=== PATIENT | male | born 1995 | race Caucasian/White ===

== ENCOUNTER 2018-01-19 23:44 | Emergency (ER) | payer OTHER ==
[~2018-01-19] VITALS: Ht 190.5 cm; Wt 86.2 kg
[~2018-01-19 23:44] MED LIST: ACETAMINOPHEN-1 EAC1 PO; AZITHROMYCIN 2250 MG PO; CELEXA20 MG PO; CIPROFLOXIN HC2.5 M1 OPHTHALMIC; DARVOCET-N 1001 EACH PO; FLEXERIL PO; KEFLEX500 MG PO; MEDROLDOSEPACK PO; NOHOMEMEDICATIONS; NORCO 5-325 TA1 EAC1 PO; NORCO 5-325 TA1 EACH PO; TRAZODONE HCL50 MG PO
[2018-01-19] MEDS ORDERED: SYNTHROID100 MC1 PO (23:58)
[2018-01-19] MEDS ORDERED: PROZAC10 MG PO (23:58)
[2018-01-20] MEDS ORDERED: CLEOCIN HCL150 MG PO (00:13)
[2018-01-20] MEDS ORDERED: CIPRO500 MG PO (00:13)
[2018-01-20 00:19] VITALS: BP 104/71
== END 2018-01-20 00:20 | disposition home or self-care (01) ==
LOC: M.ERS 23:44
DX: S61.451A Open bite of right hand, initial encounter (principal); Z90.49 Acquired absence of other specified parts of digestive tract; Z88.0 Allergy status to penicillin; W55.01XA Bitten by cat, initial encounter; Y93.89 Activity, other specified; Y92.89 Other specified places as the place of occurrence of the external cause; Y99.8 Other external cause status

== ENCOUNTER 2019-01-01 18:35 | Emergency (ER) | payer OTHER ==
[~2019-01-01] VITALS: Ht 190.5 cm; Wt 86.2 kg
[~2019-01-01 18:35] MED LIST changes: +CIPRO500 MG PO; +CLEOCIN HCL150 MG PO; +PROZAC20 MG PO; +SYNTHROID112 MC1 PO
[2019-01-01 19:28] LABS: ABSOLUTE EOSINOPHILS 0.1 thou/uL (0.0-0.7); ABSOLUTE LYMPHOCYTES 1.6 thou/uL (0.8-5.3); ABSOLUTE MONOCYTES 1.3 thou/uL (0.0-1.2); BASOPHILS 0.3 %; EOSINOPHILS 1.1 %; HEMATOCRIT 43.1 % (42.0-52.0); HEMOGLOBIN 14.6 gm/dL (14.0-18.0); LYMPHOCYTES 13.2 %; MCHC 33.9 g/dL (28.0-37.0); MCV 85.3 fL (80.0-100.0); MONOCYTES 11.1 %; NUCLEATED RBCS 0 /100WBC; PLATELET COUNT* 281 thou/uL (150-400); POLYS 74.3 %; RBC 5.05 mil/uL (4.50-6.00); RDW-CV 12.6 % (10.5-14.5); WBC 12.2 thou/uL (4.0-11.0)
[2019-01-01 19:29] LABS: URINE BILIRUBIN NEGATIVE (Negative); URINE BLOOD TRACE (Negative); URINE CLARITY CLEAR; URINE COLOR YELLOW; URINE GLUCOSE-RANDOM NEGATIVE (Negative); URINE KETONES NEGATIVE (Negative); URINE LEUKOCYTES-REFLEX NEGATIVE (Negative); URINE NITRITE-REFLEX NEGATIVE (Negative); URINE PROTEIN NEGATIVE (Negative); URINE UROBILINOGEN 0.2 E.U./dl (0.2-1.0)
[2019-01-01 19:33] LABS: CREATININE 1.1 mg/dL (0.6-1.3); POTASSIUM 3.6 mmol/L (3.5-5.1)
[2019-01-01 19:38] LABS: ALBUMIN 4.1 g/dL (3.4-5.0); MAGNESIUM 2.1 mg/dL (1.8-2.4); TOTAL BILIRUBIN 0.3 mg/dL (<0.1-1.0); TOTAL PROTEIN 7.4 g/dL (6.4-8.2)
[2019-01-01] MEDS ORDERED: DOXYCYCLINE 10100 MG PO (20:38)
[2019-01-01 22:45] VITALS: BP 133/66
== END 2019-01-01 20:56 | disposition home or self-care (01) ==
LOC: M.ERS 18:35
PROVIDERS: Nurse Practitioner Psychiatric/Mental Health
DX: S40.861A Insect bite (nonvenomous) of right upper arm, initial encounter (principal); S40.862A Insect bite (nonvenomous) of left upper arm, initial encounter; R19.7 Diarrhea, unspecified; R50.9 Fever, unspecified; R21 Rash and other nonspecific skin eruption; L53.9 Erythematous condition, unspecified; F17.200 Nicotine dependence, unspecified, uncomplicated; F41.9 Anxiety disorder, unspecified; F32.9 Major depressive disorder, single episode, unspecified; E03.9 Hypothyroidism, unspecified; Z90.49 Acquired absence of other specified parts of digestive tract; Z88.0 Allergy status to penicillin; W57.XXXA Bitten or stung by nonvenomous insect and other nonvenomous arthropods, initial encounter; Y92.89 Other specified places as the place of occurrence of the external cause; Y93.89 Activity, other specified; Y99.8 Other external cause status

== ENCOUNTER 2019-12-13 20:07 | Emergency (ER) | payer OTHER ==
[~2019-12-13] VITALS: Ht 190.5 cm; Wt 86.2 kg
[~2019-12-13 20:07] MED LIST changes: +DOXYCYCLINE 10100 MG PO
[2019-12-13] MEDS ORDERED: HYDROCODON-ACE1 EAC8 PO (20:33)
[2019-12-13] MEDS ORDERED: CLEOCIN HCL300 MG PO (20:33)
[2019-12-13 20:45] VITALS: BP 142/70
== END 2019-12-13 20:45 | disposition home or self-care (01) ==
LOC: M.ERS 20:07
DX: K08.89 Other specified disorders of teeth and supporting structures (principal); E03.9 Hypothyroidism, unspecified; F41.9 Anxiety disorder, unspecified; F32.9 Major depressive disorder, single episode, unspecified; Z90.49 Acquired absence of other specified parts of digestive tract; Z88.0 Allergy status to penicillin

== ENCOUNTER 2020-12-25 22:04 | Emergency (ER) | payer OTHER ==
[~2020-12-25] VITALS: Ht 190.5 cm; Wt 99.8 kg
[~2020-12-25 22:04] MED LIST changes: +CLEOCIN HCL300 MG PO; +HYDROCODON-ACE1 EAC8 PO
[2020-12-25] MEDS ORDERED: ABILIFY 2 MG2 M1 PO (23:11)
[2020-12-26] MEDS ORDERED: CLEOCIN HCL300 MG PO (00:21)
[2020-12-26] MEDS ORDERED: HYDROCODON-ACE1 EAC8 PO (00:21)
[2020-12-26 00:49] VITALS: BP 120/72
== END 2020-12-26 00:49 | disposition home or self-care (01) ==
LOC: M.ERS 22:04
DX: K08.89 Other specified disorders of teeth and supporting structures (principal); E03.9 Hypothyroidism, unspecified; Z88.0 Allergy status to penicillin; Z90.49 Acquired absence of other specified parts of digestive tract